=== PATIENT | male | born 1970 | race Caucasian/White ===

== ENCOUNTER 2019-12-11 09:16 | Outpatient (CLI) | payer OTHER, SELFPAY ==
--- NOTE | 2019-12-11 09:15 | XR_ITS ---
WS: [id number] XR KUB [id number] REASON FOR EXAM: Renal Stone FINDINGS: The small density is again seen overriding the 12th rib in the left kidney area. Kidneys re larisa similar in size and configuration. There is nonspecific gas and fecal stasis. No air-fluid levels are seen. XR/XR KUB [id number] IMPRESSION: Unchanged calcification overriding the 12th rib in the region of the left kidne y.
== END 2019-12-11 09:17 | disposition home or self-care (01) ==
LOC: RAD 09:20
PROVIDERS: Family Provider Nurse Practitioner; PCP Nurse Practitioner; Visit Provider Urology
DX: N20.0 Calculus of kidney (principal)
CPT/HCPCS: 74018; 81001

== ENCOUNTER 2021-12-08 09:55 | Outpatient (CLI) | payer OTHER, SELFPAY ==
--- NOTE | 2021-12-08 09:00 | XR_ITS ---
WS: [id number] KUB, AP view, 12/08/2021 Clinical Data: URINARY CALCULUS, UNSPECIFIED Comparison: KUB, 12/11/2019. Findings: No abnormal intraabdominal masses are seen. There is no dilatated small bowel or evidence of obstruct ion. There is a small calcification overlying the left kidney. XR/XR KUB [id number] Impression: Small left renal calcification.
== END 2021-12-08 09:56 | disposition home or self-care (01) ==
PROVIDERS: Family Provider Nurse Practitioner; PCP Family Medicine; Visit Provider Urology
DX: N20.0 Calculus of kidney (principal)
CPT/HCPCS: 74018; 81003

== ENCOUNTER 2022-03-04 18:29 | Emergency (ER) | payer OTHER, SELFPAY ==
[2022-03-04] VITALS (7 sets, daily range): BP systolic 195–218; BP diastolic 104–137; PULSE 69–80; RESP 14–18; TEMP 36.8; O2SAT 98–100
--- NOTE | 2022-03-04 19:09 | CTR_ITS ---
PROCEDURE INFORMATION: Exam: CT Abdomen And Pelvis With Contrast Exam date and time: 03/04/2022 7:39 PM Age: 51 years old Clinical indication: Abdominal pain; Additional info: Abd pain, centralized TECHNIQUE: Imaging protocol: Computed tomography of the abdomen and pelvis with contrast. Radiation optimization: All CT scans at this facility use at least one of these dose optimization techniques: automated exposure control; mA and/or kV adjustment per patient size (includes targeted exams where dose is matched to clinical indication); or iterative reconstruction. Contrast material: OMNIPAQUE 300; Contrast volume: 70 ml; Contrast route: INTRAVENOUS (IV); COMPARISON: CT Abdomen/Pelvis o [id number] 03/03/2016 12:32 AM RADIATION DOSE METRICS: Total DLP (mGy-cm): 1824.27 FINDINGS: Lungs: Small right lower lobe calcified granuloma. Liver: Normal. No mass. Gallbladder and bile ducts: Normal. No calcified stones. No ductal dilation. Pancreas: Normal. No ductal dilation. Spleen: Normal. No splenomegaly. Adrenal glands: Normal. No mass. Kidneys and ureters: Left perinephric fat stranding. Mild left renal parenchyma edema. Mild left-sided hydronephrosis. 3.5 mm calcified left proximal ureter stone. Stomach and bowel: Unremarkable. No obstruction. No mucosal thickening. Appendix: No evidence of appendicitis. Intraperitoneal space: Unremarkable. No free air. No significant fluid collection. Vasculature: Unremarkable. No abdominal aortic aneurysm. Lymph nodes: Unremarkable. No enlarged lymph nodes. Urinary bladder: Unremarkable as visualized. Reproductive: Unremarkable as visualized. Bones/joints: Unremarkable. No acute fracture. Soft tissues: Unremarkable. CT/CT abdomen pelvis w con* [id number] IMPRESSION: Left collecting system obstructive uropathy changes secondary to proximal ureterolithiasis.
[2022-03-04 19:12] LABS: Basophils # 0.1 10^3/uL (0.0-0.1); Basophils % 0.5 %; Eosinophils # 0.2 10^3/uL (0.0-0.8); Eosinophils % 1.2 %; Hematocrit 48.3 % (42.0-52.0); Hemoglobin 16.6 g/dL (11.7-16.6); Lymphocytes # 2.2 10^3/uL (0.8-4.8); Lymphocytes % 14.3 %; Mean Corpuscular HGB Conc 34.4 g/dL (30.0-36.0); Mean Corpuscular Hemoglobin 30.6 pg (28.0-34.0); Mean Corpuscular Volume 89.1 fl (80-94); Mean Platelet Volume 10.2 fL (7.4-10.4); Monocytes # 1.1 10^3/uL (0.2-0.9); Monocytes % 7.4 %; Neutrophils # 11.61 10^3/uL (1.8-7.7); Neutrophils % 76.2 %; Nucleated Red Blood Cells % 0 %; Platelet Count 294 10^3/cmm (130-400); Red Blood Count 5.42 10^6/uL (4.1-5.3); Red Cell Distribution Width 12.8 % (12.1-15.1); White Blood Count 15.2 10^3/uL (4.0-10.0)
[2022-03-04 19:28] LABS: Alanine Aminotransferase 40 U/L (0-41); Albumin Level 4.9 g/dL (3.5-5.2); Alkaline Phosphatase 69 IU/L (40-130); Anion Gap 18.4 (5-19); Aspartate Amino Transferase 29 U/L (0-40); Blood Urea Nitrogen 18 mg/dL (6-20); Calcium 9.9 mg/dL (8.5-10.5); Carbon Dioxide 24 mmol/L (22-29); Chloride 99 mmol/L (98-107); Globulin 3.1 g/dL (1.3-4.6); Glomerular Filtration Rate 49.3 mL/min (90-130); Glucose 113 mg/dL (65-115); Lipase 41 U/L (13-60); Osmolality Calculated 289 mOsm/kg (285-295); Potassium 3.4 mmol/L (3.5-5.1); Sodium 138 mmol/L (136-145); Total Bilirubin 0.7 mg/dL (0.15-1.2)
[2022-03-04] MEDS: HYDROmorphone 1 mg/mL INJ 1 mL IVP ×2 (19:30→20:56)
[2022-03-04] MEDS: ondansetron 2 mg/ML SDV 2 mL 4 MG IVP ×2 (19:31→20:56)
--- NOTE | 2022-03-04 19:50 | ED_ITS ---
HPI - Abdominal Pain General: Chief Complaint: Abdominal Pain Stated Complaint: abd pain Time Seen by Provider: 03/04/22 19:08 Source: patient Mode of arrival: ambulatory Limitations: no limitations History of Present Illness: 51-year-old male who states that over the last 3 days has been having left lower quadrant abdominal pain. He states his pain is worsened today he is having diffuse pain but the most is in the left lower quadrant he states that sharp in nature rates an 8 out of 10 denies any w orsening improving factors. He states he is also had no bowel movements and has not been passing any gas. Denies any history abdominal surgeries denies any fever denies any chest pain. Associated Symptoms: Reports nausea; Denies chills, dysuria and fever(s) Review of Systems Const: Denies: fever(s), chills, body aches or change in appetite Eyes: Denies: blurry vision or eye discomfort ENMT: Denies: throat pain or dental pain Card: Denies: chest pain Resp: Denies: dyspnea GI: Reports: abdominal pain and nausea : Denies: dysuria Musc: Denies: neck pain or back pain Skin/Breast: Denies: rash Neuro: Denies: headache(s) Psych: Denies: depression Sarath/Lymph: Denies: easy bruising All/Imm: Denies: urticaria PFSH ED PFSH: Medical History (Updated 03/04/22 @ 21:29 by Alfred Hernnadez MD) Amputation of right arm Urinary calculus, unspecified Surgical History H/O hand surgery Family History Mother Lupus Thyroid disease Social History Smoking and tobacco status: never smoked Alcohol intake: never Adopted: No Caregiver/support person: No Lives independently: No Household members: spouse Marital status: Current occupational status: employed History of recent travel: No Current gender identity: Male Physical Exam Const: COMMON NORMALS: patient oriented x3 HENMT: COMMON NORMALS: normocephalic and atraumatic HEAD & SCALP: normocephalic and atraumatic Eye: COMMON NORMALS: Equal, round and reactive pupils present and EOMs intact bilaterally PUPIL: Yes Equal, round and reactive pupils present Neck/C-Spine: COMMON NORMALS: full ROM and supple Chest: COMMONS NORMALS: normal inspection of the chest and normal palpation of entire chest wall Resp: COMMON NORMALS: normal respiratory effort, No retractions, No use of accessory muscles and clear to auscultation bilaterally AUSCULTATION: clear to auscultation bilaterally Cardio: COMMON NORMALS: regular rate, regular rhythm and No murmurs present (Cardio) RATE: regular rate RHYTHM: regular rhythm GI: PALPATION: Yes Tenderness to palpation present (GI) Details: LLQ OTHER: Abdominal distention with decreased bowel sounds Extremity: COMMON NORMALS: normal to inspection and full ROM Neuro: COMMON NORMALS: patient oriented x3, moves all extremities and no focal motor deficits Psych: COMMON NORMALS: mental status grossly normal, Normal thought process present and cooperative THOUGHT PROCESS: Normal thought process present Skin: COMMON NORMALS: no rashes or lesions noted and no wounds GENERAL SKIN EXAM: no rashes or lesions noted Course Vital Signs: Vital signs: Vital Signs Temperature 98.2 F 03/04/22 18:56 Pulse Rate 76 03/04/22 20:23 Respiratory Rate 17 03/04/22 20:56 Blood Pressure 195/110 03/04/22 20:23 Pulse Oximetry 100 03/04/22 20:23 MDM - Abdominal Pain Medical Decision Making Patient presents with a kidney stone likely causing his pain blood work CT scan otherwise negative his pain is resolved here he is stable for discharge is to follow-up with PCP and return if worsening. Will prescribe him [place] for home and get him follow-up with urology he is return if worsening. Lab Data : 03/04/22 19:06 03/04/22 19:06 Labs/Radiology: Radiology Impressions Abdomen/Pelvis CT 03/04/22 19:09 IMPRESSION: Left collecting system obstructive uropathy changes secondary to proximal ureterolithiasis. Laboratory Results WBC 15.2 10^3/uL (4.0-10.0) H 03/04/22 19:06 RBC 5.42 10^6/uL (4.1-5.3) H 03/04/22 19:06 Hgb 16.6 g/dL (11.7-16.6) 03/04/22 19:06 Hct 48.3 % (42.0-52.0) 03/04/22 19:06 MCV 89.1 fl (80-94) 03/04/22 19:06 MCH 30.6 pg (28.0-34.0) 03/04/22 19:06 MCHC 34.4 g/dL (30.0-36.0) 03/04/22 19:06 RDW 12.8 % (12.1-15.1) 03/04/22 19:06 Plt Count 294 10^3/cmm (130-400) 03/04/22 19:06 MPV 10.2 fL (7.4-10.4) 03/04/22 19:06 Neut % (Auto) 76.2 % 03/04/22 19:06 Lymph % (Auto) 14.3 % 03/04/22 19:06 [place] % (Auto) 7.4 % 03/04/22 19:06 Eos % (Auto) 1.2 % 03/04/22 19:06 Baso % (Auto) 0.5 % 03/04/22 19:06 Neut # (Auto) 11.61 10^3/uL (1.8-7.7) H 03/04/22 19:06 Lymph # (Auto) 2.2 10^3/uL (0.8-4.8) 03/04/22 19:06 [place] # (Auto) 1.1 10^3/uL (0.2-0.9) H 03/04/22 19:06 Eos # (Auto) 0.2 10^3/uL (0.0-0.8) 03/04/22 19:06 Baso # (Auto) 0.1 10^3/uL (0.0-0.1) 03/04/22 19:06 Nucleated RBC % (auto) 0 % 03/04/22 19:06 Nucleated RBCs # 0.0 /100WBC 03/04/22 19:06 Sodium 138 mmol/L (136-145) 03/04/22 19:06 Potassium 3.4 mmol/L (3.5-5.1) L 03/04/22 19:06 Chloride 99 mmol/L (98-107) 03/04/22 19:06 Carbon Dioxide 24 mmol/L (22-29) 03/04/22 19:06 Anion Gap 18.4 (5-19) 03/04/22 19:06 BUN 18 mg/dL (6-20) 03/04/22 19:06 Creatinine 1.5 mg/dL (0.7-1.2) H 03/04/22 19:06 GFR Calculation 49.3 mL/min (90-130) L 03/04/22 19:06 Glucose 113 mg/dL (65-115) 03/04/22 19:06 Calculated Osmolality 289 mOsm/kg (285-295) 03/04/22 19:06 Lactate 2.1 mmol/L (0.5-2.2) 03/04/22 19:20 Calcium 9.9 mg/dL (8.5-10.5) 03/04/22 19:06 Total Bilirubin 0.7 mg/dL (0.15-1.2) 03/04/22 19:06 AST 29 U/L (0-40) 03/04/22 19:06 ALT 40 U/L (0-41) 03/04/22 19:06 Alkaline Phosphatase 69 IU/L (40-130) 03/04/22 19:06 Total Protein 8.0 g/dL (6.6-8.7) 03/04/22 19:06 Albumin 4.9 g/dL (3.5-5.2) 03/04/22 19:06 Globulin 3.1 g/dL (1.3-4.6) 03/04/22 19:06 Lipase 41 U/L (13-60) 03/04/22 19:06 Urine Color Yellow (Yellow) 03/04/22 20:40 Urine Appearance Clear (CLEAR) 03/04/22 20:40 Urine pH 8 (5-7) H 03/04/22 20:40 Ur Specific [place] 1.020 (1.005-1.030) 03/04/22 20:40 Urine Protein Neg (Negative) 03/04/22 20:40 Urine Glucose (UA) Norm (Normal) 03/04/22 20:40 Urine Ketones 1+ (Negative) H 03/04/22 20:40 Urine Blood Neg (Negative) 03/04/22 20:40 Urine Nitrate Negative (Negative) 03/04/22 20:40 Urine Bilirubin Neg (Negative) 03/04/22 20:40 Prot Sulfosalicylic Acd Negative (Negative) 03/04/22 20:40 Urine Urobilinogen Norm mg/dL (Negative) 03/04/22 20:40 Ur Leukocyte Esterase Negative (Negative) 03/04/22 20:40 Discharge Plan Discharge Patient Disposition: Home Clinical Impression: Kidney stone Condition: Stable Prescriptions: New hydrocodone-acetaminophen 5-325 mg tablet 1 tab PO Q6H PRN (Reason: pain) Qty: 14 0RF ondansetron 4 mg tablet,disintegrating 4 mg PO Q6H PRN (Reason: nausea and vomiting) Qty: 14 0RF Discharge Orders: Discharge ED (Routine); Ordered 03/04/22 Ordered By: Alfred Hernandez Referrals: Leonel Whitley MD [Physician] - 1-3 days Elizabeth Lopez MD [Primary Care Provider] - Discharge Diet: Advance as tolerated Discharge Activity: Resume usual activity Patient Instructions: Kidney Stones (ED), Opioid Safety Coding Level of Care Code ED Airplane Mechanic Apprentice for Chg Fwd Exam Comprehensive
[2022-03-04] MEDS: iohexol 300 mg/mL 100 mL Btl IV (19:51)
[2022-03-04 19:54] LABS: Lactate (Lactic Acid level) 2.1 mmol/L (0.5-2.2)
[2022-03-04 20:46] LABS: Add Urine Microscopic? NO; Charge for UA Resulting for Rev
[2022-03-04 20:56] LABS: Glucose Urine UA Norm (Normal); Protein Urine Neg (Negative); Urine Appearance Clear (CLEAR); Urine Color Yellow (Yellow); pH Urine 8 (5-7)
[2022-03-04 20:57] LABS: Bilirubin Urine Neg (Negative); Blood Urine Neg (Negative); Ketones Urine 1+ (Negative); Leukocyte Esterase Urine Negative (Negative); Nitrate Urine Negative (Negative); Sulfosalicylic Acid Urine Negative (Negative); Urobilinogen Urine Norm (Negative)
--- NOTE | 2022-03-05 10:01 | DCPLANNER ---
Addendum entered by Tessa Villagomez 03/15/22 16:42: Patient had a follow up appointment scheduled for 03.12.[address] Whitley - patient did attend appointment. Original Note: talent program manager had message to schedule a follow up appointment for patient with urology. talent program manager sent patients information to the front office staff at urology. Patients information will be printed and reviewed. Clinic will call patient with appointment information.
== END 2022-03-04 21:54 | disposition home or self-care (01) ==
PROVIDERS: Emergency Provider Emergency Medicine; PCP Family Medicine
DX: N13.2 Hydronephrosis with renal and ureteral calculous obstruction (principal); R11.0 Nausea
CPT/HCPCS: 74177; 80053; 81003; 83605; 83690; 85025; 96374; 96375; 96376; 99284; J1170; J2405; Q9967

== ENCOUNTER 2022-03-06 12:34 | Emergency (ER) | payer OTHER, SELFPAY ==
[2022-03-06 12:41] VITALS: BP 222/148; PULSE 72; RESP 16; TEMP 36.8; O2SAT 98; BMI 29.2
--- NOTE | 2022-03-06 13:36 | XRR_ITS ---
PROCEDURE INFORMATION: Exam: XR Abdomen Exam date and time: 03/06/2022 2:30 PM Age: 51 years old Clinical indication: Abdominal pain; Flank; Left; Additional info: Kidney stone TECHNIQUE: Imaging protocol: XR of the abdomen. Views: Frontal supine view of the abdomen. 1 View. COMPARISON: CT abdomen pelvis w con* [id number] 03/04/2022 7:39 PM FINDINGS: Gastrointestinal tract: Normal. No bowel dilation. Organs: Proximal left ureteral stone not visualized on current exam. Bones/joints: Unremarkable. XR/XR KUB portable [id number] IMPRESSION: Proximal left ureteral stone not visualized on current exam.
--- NOTE | 2022-03-06 13:39 | W.ED.ABDPA2 ---
HPI - Abdominal Pain General: Chief Complaint: Abdominal Pain Stated Complaint: kidney stone; n/v; fatigue Time Seen by Provider: 03/06/22 13:28 History of Present Illness: 51-year-old male presents with nausea, vomiting, abdominal discomfort, bloating. Patient was seen here on 03/04/2022 and found to have a 3.5 mm proximal left urinary calculus. Patient reports that for about the last 4 days he has had difficulty keep anything down, patient reports he feels like he is not passing gas. Not having stool. Having just small dribbling urine. Patient has also however admits to not taking much by mouth. Patient denies fever, chills. Associated Symptoms: Reports bloating, constipation, nausea and vomiting; Denies chills and fever(s) Review of Systems Const: Reports: malaise; Denies: fever(s) or chills ENMT: Denies: throat pain Card: Denies: chest pain, palpitations or irregular heart rhythm Resp: Denies: dyspnea, productive cough or wheezing GI: Reports: abdominal pain, nausea, vomiting, constipation and bloating Musc: Denies: extremity pain or muscle cramps Skin/Breast: Denies: rash Neuro: Denies: headache(s) or weakness in extremities PFS ED PFSH: Medical History (Updated 03/06/22 @ 15:24 by Flaco Cherry DO) Amputation of right arm Urinary calculus, unspecified Surgical History H/O hand surgery Family History Mother Lupus Thyroid disease Social History Smoking and tobacco status: never smoked Alcohol intake: never Adopted: No Caregiver/support person: No Lives independently: No Household members: spouse Marital status: Current occupational status: employed History of recent travel: No Current gender identity: Male Physical Exam Const: COMMON NORMALS: no acute distress, average body habitus and patient oriented x3 Resp: COMMON NORMALS: normal respiratory effort and No retractions Cardio: COMMON NORMALS: regular rate and regular rhythm RATE: regular rate RHYTHM: regular rhythm GI: COMMON NORMALS: Soft to palpation PALPATION: Yes Soft to palpation and Yes Tenderness to palpation present (GI) Details: other (Mild diffuse) : COMMON NORMALS: Yes no CVA tenderness BLADDER/KIDNEY EXAM: Yes no CVA tenderness Back/Pelvis: COMMON NORMALS: no CVA tenderness Neuro: COMMON NORMALS: patient oriented x3, moves all extremities and no focal motor deficits Psych: COMMON NORMALS: mental status grossly normal and Normal thought process present THOUGHT PROCESS: Normal thought process present Skin: COMMON NORMALS: no rashes or lesions noted GENERAL SKIN EXAM: no rashes or lesions noted Course Vital Signs: Vital signs: Vital Signs Temperature 98.3 F 03/06/22 12:41 Pulse Rate 72 03/06/22 12:41 Respiratory Rate 16 03/06/22 12:41 Blood Pressure 222/148 03/06/22 12:41 Pulse Oximetry 98 03/06/22 12:41 MDM - Abdominal Pain Medical Decision Making Patient feeling significantly better following treatment. I will prescribe him some Reglan and Flomax. He needs to follow-up Tuesday with the urologist after the . He can return the ER as needed. Patient stable and discharged home Lab Data : 03/06/22 14:05 03/06/22 14:05 Labs/Radiology: Radiology Impressions KUB X-Ray 03/06/22 13:36 IMPRESSION: Proximal left ureteral stone not visualized on current exam. Laboratory Results WBC 13.3 10^3/uL (4.0-10.0) H 03/06/22 14:05 RBC 5.12 10^6/uL (4.1-5.3) 03/06/22 14:05 Hgb 15.8 g/dL (11.7-16.6) 03/06/22 14:05 Hct 45.4 % (42.0-52.0) 03/06/22 14:05 MCV 88.7 fl (80-94) 03/06/22 14:05 MCH 30.9 pg (28.0-34.0) 03/06/22 14:05 MCHC 34.8 g/dL (30.0-36.0) 03/06/22 14:05 RDW 12.6 % (12.1-15.1) 03/06/22 14:05 Plt Count 233 10^3/cmm (130-400) 03/06/22 14:05 MPV 10.2 fL (7.4-10.4) 03/06/22 14:05 Neut % (Auto) 79.2 % 03/06/22 14:05 Lymph % (Auto) 9.8 % 03/06/22 14:05 [place] % (Auto) 9.8 % 03/06/22 14:05 Eos % (Auto) 0.5 % 03/06/22 14:05 Baso % (Auto) 0.3 % 03/06/22 14:05 Neut # (Auto) 10.56 10^3/uL (1.8-7.7) H 03/06/22 14:05 Lymph # (Auto) 1.3 10^3/uL (0.8-4.8) 03/06/22 14:05 [place] # (Auto) 1.3 10^3/uL (0.2-0.9) H 03/06/22 14:05 Eos # (Auto) 0.1 10^3/uL (0.0-0.8) 03/06/22 14:05 Baso # (Auto) 0.0 10^3/uL (0.0-0.1) 03/06/22 14:05 Nucleated RBC % (auto) 0 % 03/06/22 14:05 Nucleated RBCs # 0.0 /100WBC 03/06/22 14:05 Sodium 135 mmol/L (136-145) L 03/06/22 14:05 Potassium 3.6 mmol/L (3.5-5.1) 03/06/22 14:05 Chloride 96 mmol/L (98-107) L 03/06/22 14:05 Carbon Dioxide 26 mmol/L (22-29) 03/06/22 14:05 Anion Gap 16.6 (5-19) 03/06/22 14:05 BUN 20 mg/dL (6-20) 03/06/22 14:05 Creatinine 1.7 mg/dL (0.7-1.2) H 03/06/22 14:05 GFR Calculation 42.7 mL/min (90-130) L 03/06/22 14:05 Glucose 115 mg/dL (65-115) 03/06/22 14:05 Calculated Osmolality 284 mOsm/kg (285-295) L 03/06/22 14:05 Calcium 9.6 mg/dL (8.5-10.5) 03/06/22 14:05 Total Bilirubin 1.4 mg/dL (0.15-1.2) H 03/06/22 14:05 AST 20 U/L (0-40) 03/06/22 14:05 ALT 23 U/L (0-41) 03/06/22 14:05 Alkaline Phosphatase 69 IU/L (40-130) 03/06/22 14:05 Total Protein 7.8 g/dL (6.6-8.7) 03/06/22 14:05 Albumin 4.5 g/dL (3.5-5.2) 03/06/22 14:05 Globulin 3.3 g/dL (1.3-4.6) 03/06/22 14:05 Urine Color Yellow (Yellow) 03/06/22 13:50 Urine Appearance Clear (CLEAR) 03/06/22 13:50 Urine pH 5 (5-7) 03/06/22 13:50 Ur Specific [place] 1.015 (1.005-1.030) 03/06/22 13:50 Urine Protein 1+ (Negative) H 03/06/22 13:50 Urine Glucose (UA) Norm (Normal) 03/06/22 13:50 Urine Ketones 2+ (Negative) H 03/06/22 13:50 Urine Blood 3+ (Negative) H 03/06/22 13:50 Urine Nitrate Negative (Negative) 03/06/22 13:50 Urine Bilirubin Neg (Negative) 03/06/22 13:50 Urine Urobilinogen Norm mg/dL (Negative) 03/06/22 13:50 Ur Leukocyte Esterase Negative (Negative) 03/06/22 13:50 Urine RBC 10-15 /hpf (0-2) H 03/06/22 13:50 Urine WBC Rare /hpf (0-5) 03/06/22 13:50 Ur Squamous Epith Cells None /hpf (0-5) 03/06/22 13:50 Amorphous Sediment Not Reportable 03/06/22 13:50 Urine Bacteria Trace /hpf (NONE) 03/06/22 13:50 Imaging Data KUB: My impression: No acute findings Discharge Plan Discharge Patient Disposition: Home Clinical Impression: Calculus of proximal left ureter Condition: Stable Prescriptions: New Flomax 0.4 mg capsule 0.4 mg PO DAILY Qty: 14 0RF Reglan 10 mg tablet 10 mg PO Q6H 7 Days Qty: 28 0RF No Action hydrocodone-acetaminophen 5-325 mg tablet 1 tab PO Q6H PRN (Reason: pain) Qty: 14 0RF ondansetron 4 mg tablet,disintegrating 4 mg PO Q6H PRN (Reason: nausea and vomiting) Qty: 14 0RF Discharge Orders: Discharge ED (Routine); Ordered 03/06/22 Ordered By: Flaco Cherry Referrals: Elizabeth Lopez MD [Primary Care Provider] - Discharge Diet: Advance as tolerated Discharge Activity: Resume usual activity Patient Instructions: Kidney Stones (ED), Opioid Safety Activity Restrictions/Additional Instructions: Please follow-up with urologist on Tuesday after the Return to the ER as needed Coding Level of Care Code ED Plastic Tile Layer for Silvestre Fwd Exam Comprehensive
[2022-03-06] MEDS: lactated ringers 1,000 ML 999 ML IV ×2 (13:56→15:20)
[2022-03-06] MEDS: ketorolac 30 mg/mL INJ 15 MG IVP (13:57)
[2022-03-06] MEDS: metoclopramide 5 mg/mL SDV 2 mL 10 MG IVP (13:58)
[2022-03-06 14:14] LABS: Basophils % 0.3 %; Eosinophils # 0.1 10^3/uL (0.0-0.8); Eosinophils % 0.5 %; Hematocrit 45.4 % (42.0-52.0); Hemoglobin 15.8 g/dL (11.7-16.6); Lymphocytes # 1.3 10^3/uL (0.8-4.8); Lymphocytes % 9.8 %; Mean Corpuscular HGB Conc 34.8 g/dL (30.0-36.0); Mean Corpuscular Hemoglobin 30.9 pg (28.0-34.0); Mean Corpuscular Volume 88.7 fl (80-94); Mean Platelet Volume 10.2 fL (7.4-10.4); Monocytes # 1.3 10^3/uL (0.2-0.9); Monocytes % 9.8 %; Neutrophils # 10.56 10^3/uL (1.8-7.7); Neutrophils % 79.2 %; Nucleated Red Blood Cells % 0 %; Platelet Count 233 10^3/cmm (130-400); Red Blood Count 5.12 10^6/uL (4.1-5.3); Red Cell Distribution Width 12.6 % (12.1-15.1); White Blood Count 13.3 10^3/uL (4.0-10.0)
[2022-03-06 14:32] LABS: Alanine Aminotransferase 23 U/L (0-41); Albumin Level 4.5 g/dL (3.5-5.2); Alkaline Phosphatase 69 IU/L (40-130); Aspartate Amino Transferase 20 U/L (0-40); Blood Urea Nitrogen 20 mg/dL (6-20); Calcium 9.6 mg/dL (8.5-10.5); Carbon Dioxide 26 mmol/L (22-29); Chloride 96 mmol/L (98-107); Globulin 3.3 g/dL (1.3-4.6); Glomerular Filtration Rate 42.7 mL/min (90-130); Glucose 115 mg/dL (65-115); Osmolality Calculated 284 mOsm/kg (285-295); Sodium 135 mmol/L (136-145); Total Bilirubin 1.4 mg/dL (0.15-1.2); Total Protein 7.8 g/dL (6.6-8.7)
[2022-03-06 14:54] LABS: Urine Appearance Clear (CLEAR); Urine Color Yellow (Yellow)
[2022-03-06 14:55] LABS: Add Urine Microscopic? YES; Bilirubin Urine Neg (Negative); Blood Urine 3+ (Negative); Glucose Urine UA Norm (Normal); Ketones Urine 2+ (Negative); Leukocyte Esterase Urine Negative (Negative); Nitrate Urine Negative (Negative); Protein Urine 1+ (Negative); Specific Gravity, Urine 1.015 (1.005-1.030); Urobilinogen Urine Norm (Negative); pH Urine 5 (5-7)
[2022-03-06 14:56] LABS: Bacteria Urine TRACE /hpf; WBC Urine RARE /hpf (0-5)
[2022-03-06 14:57] LABS: Add Urine Culture? Yes
[2022-03-06 15:01] LABS: Anion Gap 16.6 (5-19); Potassium 3.6 mmol/L (3.5-5.1)
--- NOTE | 2022-03-07 08:36 | DCPLANNER ---
area development manager had message to schedule a follow up appointment for patient with urology. area development manager sent patients information to the front office staff at urology. Patients information will be printed and reviewed. Clinic will call patient with appointment information.
== END 2022-03-06 16:35 | disposition home or self-care (01) ==
PROVIDERS: Emergency Provider Student in an Organized Health Care Education/Training Program; PCP Family Medicine
DX: N20.1 Calculus of ureter (principal); Z87.442 Personal history of urinary calculi; R11.2 Nausea with vomiting, unspecified
CPT/HCPCS: 74018; 80053; 81001; 85025; 87086; 96361; 96374; 96375; 99284; J1885; J2765

== ENCOUNTER 2022-03-12 07:07 | Outpatient (CLI) | payer OTHER, SELFPAY ==
--- NOTE | 2022-03-12 07:15 | XRR_ITS ---
PROCEDURE INFORMATION: Exam: XR Abdomen Exam date and time: 03/12/2022 7:19 AM Age: 51 years old Clinical indication: Condition or disease; Kidney or ureter condition; Calculus (stone) in ureter; Patient HX: Stone in proximal left ureter; Additional info: Stonemissael 03/12/22 @ 7:15 appt to follow TECHNIQUE: Imaging protocol: XR of the abdomen. Views: Frontal supine view of the abdomen. 1 View. COMPARISON: CR (ABDOMEN, ) 03/06/2022 2:30 PM FINDINGS: Gastrointestinal tract: Normal. No bowel dilation. Bones/joints: There is a faint 6 mm density in the projection of the left urinary outflow track between the 3rd and 4th left transverse process.. This finding suspicious for a stone. XR/XR KUB [id number] IMPRESSION: 1. No acute findings. 2. Possible stone left urinary outflow tract
== END 2022-03-12 07:08 | disposition home or self-care (01) ==
LOC: RAD 07:08
PROVIDERS: PCP Family Medicine; Visit Provider Urology
DX: N20.1 Calculus of ureter (principal)
CPT/HCPCS: 74018; 81003

== ENCOUNTER 2023-02-22 18:14 | Emergency (ER) | payer OTHER, SELFPAY ==
[2023-02-22 19:19] VITALS: BMI 29.0
[2023-02-22 19:23] VITALS: BP 189/111; PULSE 72; RESP 18; TEMP 36.7; O2SAT 96
--- NOTE | 2023-02-22 21:18 | ECG_ITS ---
[facility] Test Date: 2023-02-22 Pat Name: Mook Cates Department: Room: Gender: Male Corner Cutter: : 1970 Requested By: Alfred Hernandez Order Number: [id number] Josselin MD: Jose Reese M.D. Measurements Intervals [place] Rate: 65 P: 26 AR: 211 QRS: 47 QRSD: 91 T: 67 QT: 417 QTc: 434 Interpretive Statements SINUS RHYTHM WITH FIRST DEGREE AV BLOCK INCOMPLETE RIGHT BUNDLE BRANCH BLOCK [90+ ms QRS DURATION, TERMINAL R IN V1/V2, 40+ ms S IN I/aVL/V4/V5/V6] No previous ECG available for comparison Electronically Signed On 02-23-2023 17:49:38 CDT by Jose Reese M.D. [id number]
[2023-02-22 22:20] LABS: Basophils # 0.1 10^3/uL (0.0-0.1); Eosinophils # 0.7 10^3/uL (0.0-0.8); Eosinophils % 7.6 %; Hematocrit 44.8 % (42.0-52.0); Hemoglobin 15.1 g/dL (11.7-16.6); Lymphocytes # 2.8 10^3/uL (0.8-4.8); Lymphocytes % 31.1 %; Mean Corpuscular HGB Conc 33.7 g/dL (30.0-36.0); Mean Corpuscular Hemoglobin 30.3 pg (28.0-34.0); Mean Platelet Volume 10.2 fL (7.4-10.4); Monocytes # 0.7 10^3/uL (0.2-0.9); Monocytes % 7.3 %; Neutrophils # 4.66 10^3/uL (1.8-7.7); Neutrophils % 52.5 %; Nucleated Red Blood Cells % 0 %; Platelet Count 261 10^3/cmm (130-400); Red Blood Count 4.98 10^6/uL (4.1-5.3); Red Cell Distribution Width 12.9 % (12.1-15.1); White Blood Count 8.9 10^3/uL (4.0-10.0)
[2023-02-22] MEDS: hyDRALAzine 20 mg/mL INJ 1 mL 10 MG IVP ×2 (22:27→23:22)
--- NOTE | 2023-02-22 22:29 | W.ED.GENADLT ---
HPI - General Adult General: Chief complaint: General Medical Stated complaint: High Blood Pressure Time Seen by Provider: 02/22/23 22:03 Source: patient Mode of arrival: ambulatory Limitations: no limitations History of Present Illness: 52-year-old male states that he went to his PCP today just for a checkup states his blood pressure there was over 200 he states that he had checked it at home before as well and had been running high over the last week he denies any known hypertension in the past he has no medical complaints denies any chest pain headache or dizziness. Associated symptoms: Deny chest pain, dyspnea, headache(s), nausea, rash or vomiting Review of Systems Const: Denies: fever(s), chills or change in appetite Eyes: Denies: blurry vision ENMT: Denies: throat pain or dental pain Card: Denies: chest pain Resp: Denies: dyspnea GI: Denies: abdominal pain, nausea, vomiting or diarrhea : Denies: dysuria Musc: Denies: neck pain or back pain Skin/Breast: Denies: rash Neuro: Denies: headache(s) Psych: Denies: depression PFSH ED PFSH: Medical History Amputation of right arm Urinary calculus, unspecified Surgical History H/O hand surgery Family History Mother Lupus Thyroid disease Social History Smoking and tobacco status: never smoked Alcohol intake: current Alcohol intake frequency: holidays/special occasions only Substance/Drug Use: never Adopted: No Caregiver/support person: No Lives independently: No Household members: spouse Marital status: Current occupational status: employed Current gender identity: Male Physical Exam Const: COMMON NORMALS: no acute distress, patient oriented x3 and healthy appearing HENMT: COMMON NORMALS: normocephalic and atraumatic HEAD & SCALP: normocephalic and atraumatic Eye: COMMON NORMALS: conjunctivae normal CONJUNCTIVA: Yes conjunctivae normal Neck/C-Spine: COMMON NORMALS: supple Chest: COMMONS NORMALS: normal inspection of the chest Resp: COMMON NORMALS: normal respiratory effort, No retractions, No use of accessory muscles and clear to auscultation bilaterally AUSCULTATION: clear to auscultation bilaterally Cardio: COMMON NORMALS: regular rate, regular rhythm and No murmurs present (Cardio) RATE: regular rate RHYTHM: regular rhythm GI: INSPECTION: Yes normal to inspection Extremity: COMMON NORMALS: normal to inspection and full ROM Neuro: COMMON NORMALS: patient oriented x3, moves all extremities and no focal motor deficits Psych: COMMON NORMALS: mental status grossly normal, Normal thought process present and cooperative THOUGHT PROCESS: Normal thought process present Skin: COMMON NORMALS: no rashes or lesions noted and no wounds GENERAL SKIN EXAM: no rashes or lesions noted Course Vital Signs: Vital signs: Vital Signs Temperature 98.0 F 02/22/23 19:23 Pulse Rate 80 02/23/23 00:10 Respiratory Rate 16 02/23/23 00:10 Blood Pressure 183/112 02/23/23 00:10 Pulse Oximetry 98 02/23/23 00:10 Oxygen Delivery Me thod Room Air 02/22/23 19:23 MDM - General Adult Medical Decision Making Patient presents here with hypertension his blood pressure here is improved he has been asymptomatic we will start him on Norvasc he is to take a blood pressure log and follow-up with his PCP he is to return if worsening. Medical Records I reviewed the patient's medical records. Lab Data I reviewed the patient's lab results. 02/22/23 22:03 02/22/23 22:03 Laboratory Results WBC 8.9 10^3/uL (4.0-10.0) 02/22/23 22:03 RBC 4.98 10^6/uL (4.1-5.3) 02/22/23 22:03 Hgb 15.1 g/dL (11.7-16.6) 02/22/23 22:03 Hct 44.8 % (42.0-52.0) 02/22/23 22:03 MCV 90.0 fl (80-94) 02/22/23 22:03 MCH 30.3 pg (28.0-34.0) 02/22/23 22:03 MCHC 33.7 g/dL (30.0-36.0) 02/22/23 22:03 RDW 12.9 % (12.1-15.1) 02/22/23 22:03 Plt Count 261 10^3/cmm (130-400) 02/22/23 22:03 MPV 10.2 fL (7.4-10.4) 02/22/23 22:03 Neut % (Auto) 52.5 % 02/22/23 22:03 Lymph % (Auto) 31.1 % 02/22/23 22:03 Edgar % (Auto) 7.3 % 02/22/23 22:03 Eos % (Auto) 7.6 % 02/22/23 22:03 Baso % (Auto) 1.0 % 02/22/23 22:03 Neut # (Auto) 4.66 10^3/uL (1.8-7.7) 02/22/23 22:03 Lymph # (Auto) 2.8 10^3/uL (0.8-4.8) 02/22/23 22:03 Edgar # (Auto) 0.7 10^3/uL (0.2-0.9) 02/22/23 22:03 Eos # (Auto) 0.7 10^3/uL (0.0-0.8) 02/22/23 22:03 Baso # (Auto) 0.1 10^3/uL (0.0-0.1) 02/22/23 22:03 Nucleated RBC % (auto) 0 % 02/22/23 22: Nucleated RBCs # 0.0 /100WBC 02/22/23 22:03 Sodium 142 mmol/L (136-145) 02/22/23 22: Potassium 3.6 mmol/L (3.5-5.1) 02/22/23 22:03 Chloride 103 mmol/L (98-107) 02/22/23 22:03 Carbon Dioxide 27 mmol/L (22-29) 02/22/23 22:03 Anion Gap 15.6 (5-19) 02/22/23 22:03 BUN 15 mg/dL (6-20) 02/22/23 22:03 Creatinine 1.1 mg/dL (0.7-1.2) 02/22/23 22:03 GFR Calculation 70.3 mL/min (90-130) L 02/22/23 22:03 Glucose 99 mg/dL (65-115) 02/22/23 22:03 Calculated Osmolality 295 mOsm/kg (285-295) 02/22/23 22:03 Calcium 8.9 mg/dL (8.5-10.5) 02/22/23 22:03 Total Bilirubin 0.5 mg/dL (0.15-1.2) 02/22/23 22:03 AST 22 U/L (0-40) 02/22/23 22:03 ALT 34 U/L (0-41) 02/22/23 22:03 Alkaline Phosphatase 71 U/L (40-130) 02/22/23 22:03 Total Protein 7.4 g/dL (6.6-8.7) 02/22/23 22:03 Albumin 4.5 g/dL (3.5-5.2) 02/22/23 22:03 Globulin 2.9 g/dL (1.3-4.6) 02/22/23 22:03 EKG Data EKG 1: I personally reviewed and interpreted this EKG as follows: EKG interpretation date: 02/22/23 EKG interpretation time: 22:45 Interpretation: nsr hr [address] or t wave abnormalities qrs 91 qtc 428 Discharge Plan Discharge Patient Disposition: Home Clinical Impression: Hypertension Condition: Stable Prescriptions: New Norvasc 5 mg tablet 5 mg PO BID Qty: 60 0RF No Action (DME) Prosthetic arm repairs See Rx Instructions .Route .MEDSUPPLY Qty: 1 0RF Rx Instructions: Account Manager [employer] [phone] phone number Discharge Orders: Discharge ED (Routine); Ordered 02/22/23 Ordered By: Alfred Hernandez Referrals: Elizabeth Lopez MD [Primary Care Provider] - 1-3 days Discharge Diet: Advance as tolerated Discharge Activity: Resume usual activity Patient Instructions: Hypertension (ED) Coding Level of Care Code ED Director Translation for Yarig Ronaldo
[2023-02-22 22:41] LABS: Alanine Aminotransferase 34 U/L (0-41); Albumin Level 4.5 g/dL (3.5-5.2); Alkaline Phosphatase 71 U/L (40-130); Anion Gap 15.6 (5-19); Aspartate Amino Transferase 22 U/L (0-40); Blood Urea Nitrogen 15 mg/dL (6-20); Calcium 8.9 mg/dL (8.5-10.5); Carbon Dioxide 27 mmol/L (22-29); Chloride 103 mmol/L (98-107); Globulin 2.9 g/dL (1.3-4.6); Glomerular Filtration Rate 70.3 mL/min (90-130); Glucose 99 mg/dL (65-115); Osmolality Calculated 295 mOsm/kg (285-295); Potassium 3.6 mmol/L (3.5-5.1); Sodium 142 mmol/L (136-145); Total Bilirubin 0.5 mg/dL (0.15-1.2); Total Protein 7.4 g/dL (6.6-8.7)
[2023-02-22 22:45] VITALS: BP 179/129; PULSE 67; RESP 16; O2SAT 98
[2023-02-23] MEDS: ketorolac 30 mg/mL INJ 15 MG IVP (00:06)
[2023-02-23 00:10] VITALS: BP 183/112; PULSE 80; RESP 16; O2SAT 98
== END 2023-02-23 00:13 | disposition home or self-care (01) ==
PROVIDERS: Emergency Provider Emergency Medicine; PCP Family Medicine
DX: I10 Essential (primary) hypertension (principal)
CPT/HCPCS: 36415; 80053; 85025; 93005; 96374; 96375; 96376; 99284; J0360; J1885

== ENCOUNTER → 2024-12-05 10:06 | Outpatient (BNVA) | payer OTHER, SELFPAY | PROVIDERS: Visit Provider Nurse Practitioner Family | DX: R05.9 Cough, unspecified (principal); R06.89 Other abnormalities of breathing | CPT/HCPCS: 71046 ==

== ENCOUNTER → 2025-07-02 09:46 | Outpatient (BNVA) | payer OTHER, SELFPAY | PROVIDERS: Visit Provider Nurse Practitioner Family | DX: J98.8 Other specified respiratory disorders (principal); R06.89 Other abnormalities of breathing; I10 Essential (primary) hypertension; K42.9 Umbilical hernia without obstruction or gangrene; R09.89 Other specified symptoms and signs involving the circulatory and respiratory systems; R05.9 Cough, unspecified | CPT/HCPCS: 71046; 80053; 80061; 83880; 84443; 85025 ==

== ENCOUNTER 2025-07-10 06:31 | Outpatient (CLI) | payer OTHER, SELFPAY ==
--- NOTE | 2025-07-10 06:30 | US_ITS ---
WS: [id number] Complete ABDOMINAL ULTRASOUND HISTORY: K42.9 - Umbilical hernia without obstruction or gangrene COMPARISON: None available. Liver: 17.3 cm in length. Normal size liver and echogenicity. No bile duct dilatation or mass. Portal Vein: Normal hepatopetal flow with monophasic waveform. Gallbladder: Normally distended gallbladder with no stones or wall thickening. CBD: 0.4 cm Pancreas: Partially obscured. Right kidney: 11.4 cm x 5.5 x 4.8 cm. Cortex:1.8 cm. Normal size and echogenicity. No hydronephrosis or mass. Left kidney: 11.7 cm x 5.7 cm x 4.8 cm. Cortex: 1.6 cm. Normal size and echogenicity. No hydronephrosis or mass. Spleen: 13.9 cm. Normal size and echogenicity. Aorta and IVC: Unremarkable abdominal aorta and IVC. Ventral abdominal wall hernia near the umbilicus. There is a defect within the abdominal wall with herniation of fat. Hernia measures 2.8 x 1.3 cm. No peristalsing loop of bowel is identified. US/US abdomen complete* [id number] Impression: 1. Negative gallbladder. 2. No renal obstruction. 3. Umbilical hernia containing omental fat. No peristalsing bowel loops extend ing into the hernia.
== END 2025-07-10 06:32 | disposition home or self-care (01) ==
LOC: RAD 06:35
PROVIDERS: PCP Nurse Practitioner Family; Visit Provider Nurse Practitioner Family
DX: K42.9 Umbilical hernia without obstruction or gangrene (principal)
CPT/HCPCS: 76700

== ENCOUNTER → 2025-09-11 12:30 | Outpatient (BNVA) | payer OTHER, SELFPAY | PROVIDERS: PCP Nurse Practitioner Family; Visit Provider Internal Medicine Cardiovascular Disease | DX: R07.9 Chest pain, unspecified (principal); I49.8 Other specified cardiac arrhythmias | CPT/HCPCS: 93005 ==